=== PATIENT | female | born 2000 | race Hispanic/Latino ===

== ENCOUNTER 2023-07-03 09:27 | Emergency (ER) | payer OTHER, SELFPAY ==
[2023-07-03 09:52] VITALS: BP 129/68; PULSE 94; RESP 16; TEMP 37.3; O2SAT 99
--- NOTE | 2023-07-03 10:01 | ED.URI ---
HPI - URI/Sore Throat General Chief Complaint: Upper Respiratory Infection Stated Complaint: Sore throat Time Seen by Provider: 07/03/23 10:02 Source: patient Mode of arrival: ambulatory Limitations: no limitations History of Present Illness HPI Narrative: 22 yo F presents with c/o sore throat, chills and bodyaches for 2 days. Afebrile. hx of strep multiple times. pt also states she is . found out a few wks ago. LMP end of apr. Has not made [employer] appt yet. No pregnacy related complications today. all systems reviewed and negative except as noted above. Related Data Allergies Allergy/AdvReac Type Severity Reaction Status Date / Time No Known Allergies Allergy Verified 07/03/23 10:10 Review of Systems Review of Systems: CONSTITUTIONAL: Denies fever. reports chills. Denies sweats. EYES: Denies visual changes, redness, or discharge. ENT: Denies rhinorrhea, congestion . Reports sore throat. denies otalgia. CARDIOVASCULAR: Denies chest pain, palpitations, or edema. RESPIRATORY: Denies cough or dyspnea. GASTROINTESTINAL: Denies abdominal pain, nausea, vomiting, or diarrhea. GENITOURINARY: Denies dysuria or hematuria. SKIN: Denies rash or itching. MUSCULOSKELETAL: Denies back pain, joint pain. Reports myalgia. NEUROLOGIC: Denies headache, numbness, or weakness. PSYCHIATRIC: Denies anxiety or depression. All other systems reviewed are negative, except as documented in HPI. PMFSH Comments At time of signature, agree with nursing past medical, surgical, social and family history. There is no relevant family history pertinent to the presenting complaint. Exam Narrative: GENERAL: This is a well-nourished, well-developed patient, in no apparent distress. HEAD: normocephalic, atraumatic. EYES: PERRL. Sclera clear/white. Vision is grossly intact. EARS: External ears normal, auditory canals clear and without drainage, TMs normal without perforation. Hearing grossly intact. NOSE: External nose normal with no obvious nasal discharge, nares without redness, no rhinorrhea. THROAT: Mucous membranes moist, mild erythema to posterior pharynx without swelling or exudates. NECK: Neck supple, non-tender without lymphadenopathy, masses or thyromegaly. CARDIOVASCULAR: Regular rate and rhythm without murmurs, gallops, or rubs. RESPIRATORY: Clear to auscultation. Breath sounds equal bilaterally. No wheezes, rales, or rhonchi. SKIN: warm, Dry, intact with no suspicious lesions or rash, good texture and turgor. NEURO: awake, alert, and oriented to person, place and time. There were no obvious focal neurologic abnormalities. EXTREMITIES: No joint tenderness, effusion, or edema noted. Course Course Level of Care: Express Care Visit Vital Signs Vital signs: Vital Signs Temperature 37.3 C 07/03/23 09:52 Pulse Rate 94 07/03/23 09:52 Respiratory Rate 16 07/03/23 09:52 Blood Pressure 129/68 07/03/23 09:52 Pulse Oximetry 99 07/03/23 09:52 Oxygen Delivery Room Air 07/03/23 09:52 Temperature 37.3 C 07/03/23 09:52 Pulse Rate 94 07/03/23 09:52 Respiratory Rate 16 07/03/23 09:52 Blood Pressure 129/68 07/03/23 09:52 Pulse Oximetry 99 07/03/23 09:52 Oxygen Delivery Room Air 07/03/23 09:52 Reviewed MDM - URI/Sore Throat MDM Narrative Medical decision making narrative: negative rapid strep will wait for strep culture prior to treating with antibiotics. Patient agrees with plan of care. Patient given [facility] booklet with several OBGYN names and numbers. Patient is aware of diagnosis, understands and agrees to treatment plan. Anticipatory guidance given. Patient agrees to follow-up as directed and is aware of reasons to seek care at the emergency department. Portions of this record may have been created with voice recognition software Differential Diagnosis Differential diagnosis: Likely viral infection and pharyngitis Lab Data Labs: Strep Screen
== END 2023-07-03 10:24 | disposition home or self-care (01) ==
PROVIDERS: Emergency Provider Nurse Practitioner Family
DX: O99.519 Diseases of the respiratory system complicating pregnancy, unspecified trimester (principal); Z3A.00 Weeks of gestation of pregnancy not specified; J02.9 Acute pharyngitis, unspecified
CPT/HCPCS: 87081; 87880; 99213; G0463

== ENCOUNTER 2024-01-29 04:02 | Inpatient (IN) | payer OTHER, SELFPAY ==
[2024-01-29] VITALS (192 sets, daily range): BP systolic 87–193; BP diastolic 49–153; PULSE 56–121; TEMP 36.1–36.7; O2SAT 89–100; BMI 37.8
[2024-01-29 04:48] LABS: Basophils Percent Auto 0.5 % (0.2-1.2); Eosinophils Absolute Auto 0.2 K/mm3 (0-0.3); Eosinophils Percent Auto 1.9 % (0-4.4); Hematocrit 37.8 % (37.0-47.0); Hemoglobin 12.5 g/dL (12.0-15.0); Immature Granulocyte Absolute 0.04 K/mm3 (0.00-0.031); Immature Granulocyte Percent A 0.5 % (0-0.5); Lymphocytes Absolute Auto 2.97 K/mm3 (0.9-3.2); Lymphocytes Percent Auto 37.7 % (18.3-44.2); Mean Corpuscular HGB Conc 33.1 g/dl (32-36); Mean Corpuscular Hemoglobin 27.6 pg (26-34); Mean Corpuscular Volume 83.4 fl (80-100); Mean Platelet Volume 12.6 fl (7.4-10.4); Monocytes Absolute Auto 0.6 K/mm3 (0.1-0.6); Monocytes Percent Auto 7.5 % (2.6-8.5); Neutrophils Absolute Auto 4.1 K/mm3 (1.3-6.7); Neutrophils Percent Auto 51.9 % (45.5-73.1); Platelet Count Result 143 k/mm3 (150-375); Red Blood Count 4.53 M/mm3 (4.2-5.4); White Blood Count 7.9 K/mm3 (4.5-10.0)
[2024-01-29] MEDS: LACTATED RINGERS 1,000 ML 125 ML IV CONT ×2 (04:53→15:47)
[2024-01-29] MEDS: AMPICILLIN 2 GM/NS 100 ML 2 GM/100 ML BAG IVPB (04:53)
--- NOTE | 2024-01-29 04:57 | LDADM ---
This patient, Shayy Evans, was admitted to Labor/Delivery/Recovery 106 on 01/29/24 at 04:02. Plans for labor, pain management and were discussed with patient. Patient/family oriented to hospital policies and general routines including ID bracelet, bed and alarms, visiting hours, pain management, procedures, bathroom and other care routines, personal items, smoking policy, room service/diet and guest tray routines, security routines, and visiting hours. Patient/Family are encouraged to report perceived risks to care and to ask questions if they do not understand what they are told or what they should do. See [facility]BI[facility] for further documentation.
[2024-01-29 05:37] LABS: HIV 1/2 Ab P24 Ag Result Negative (Negative)
[2024-01-29] MEDS: OXYTOCIN 30 UNITS/NS 500 ML 30 UNITS/500 ML BAG 6 UNITS IV CONT (06:51)
--- NOTE | 2024-01-29 08:23 | P.HPUP_ITS ---
History and Physical Update Update Date/Time: 01/29/24 08:23 23-year-old 1 at term who presented with spontaneous rupture membranes. No contractions yet. Comfortable. Receiving antibiotics for group B strep status. Expectant management. Adding Pitocin. History and Physical has been reviewed, including an updated exam of the patient. There are NO changes in the patient's condition. Risks, benefits, and alternatives have been discussed and questions answered. P atient agrees to proceed with procedure.
[2024-01-29] MEDS: AMPICILLIN 1 GM/NS 50 ML 1 GM/50 ML BAG IVPB ×3 (09:06→17:02)
--- NOTE | 2024-01-29 10:00 | P.PNAN_ITS ---
Anes - Eval Pre Procedure Procedure: labor epidural Date/Time: 01/29/24 10:00 Preop Diagnosis: labor pain Pre Op Diagnosis: SROM Patient Data Age: 23 Gender: F Height: 1.52 m Weight: 88 kg Last Vital Signs Temp 36.1 C L 01/29/24 08:00 Pulse 89 01/29/24 09:30 BP 123/72 01/29/24 09:30 Allergies Allergy/AdvReac Type Severity Reaction Status Date / Time No Known Allergies Allergy Verified 07/03/23 10:10 Home Medications Medication Instructions Recorded Confirmed Type prenat.vits,venancio,dli-iewx-ehydw 1 tablet 01/13/24 History Laboratory Tests 01/29/24 04:38 WBC 7.9 K/mm3 (4.5-10.0) RBC 4.53 M/mm3 (4.2-5.4) Hgb 12.5 g/dL (12.0-15.0) Hct 37.8 % (37.0-47.0) MCV 83.4 fl (80-100) MCH 27.6 pg (26-34) MCHC 33.1 g/dl (32-36) RDW 16.0 H % (11.5-14.5) Plt Count 143 L k/mm3 (150-375) MPV 12.6 H fl (7.4-10.4) Immature Gran % (Auto) 0.5 % (0-0.5) Neut % (Auto) 51.9 % (45.5-73.1) Lymph % (Auto) 37.7 % (18.3-44.2) [place] % (Auto) 7.5 % (2.6-8.5) Eos % (Auto) 1.9 % (0-4.4) Baso % (Auto) 0.5 % (0.2-1.2) Lymph # (Auto) 2.97 K/mm3 (0.9-3.2) [place] # (Auto) 0.6 K/mm3 (0.1-0.6) Eos # (Auto) 0.2 K/mm3 (0-0.3) Baso # (Auto) 0.0 K/mm3 (0.0-0.1) Abs Immat Gran (auto) 0.04 H K/mm3 (0.00-0.031) Absolute Neuts (auto) 4.1 K/mm3 (1.3-6.7) Absolute Nucleated RBC 0.000 K/mm3 (0.0-0.012) Nucleated RBC % 0.0 % (0.0-0.2) RPR Pending HIV 1&2 Ab/P24 Ag 4thGn Negative (Negative) Blood Type O Positive Antibody Screen Negative Patient hx anesthesia problems: none Family hx anesthesia problems: none Results Review: All pre-operative results and documents have been reviewed as part of the pre- operative evaluation. [facility] Family History Family History Grandparent Diabetes mellitus Social History Social History Smoking status: Never smoker Second hand tobacco smoke exposure: No Substance use: never Do You Feel Safe in your Home?: Yes Lack of Transportation: No Lack of Food: Never True Current Housing: I Have Housing Concerned About Future Housing: No Difficulty Paying Gas/Electric Bills: No Difficulty Paying for Meds: No Currently Unemployed: YES Education: High School Diploma/GED Difficulty w/ Childcare or Family Care: No Spiritual care concerns: No Exam Day of Procedure 01/29/24 10:00 Patient weight: normal Heart: regular rate and rhythm Lungs: clear to auscultation and normal air movement Airway: Mallampati scale class II Neurological: alert and oriented
[2024-01-29] MEDS: fentaNYL CITRATE INJ (*CRX) 100 MCG/2 ML VIAL 50 MCG IV PUSH (10:42)
[2024-01-29] MEDS: LACTATED RINGERS 1,000 ML 999 ML IV CONT (11:09)
[2024-01-29] MEDS: miSOPROStol 200 MCG TABLET 1000 MCG (20:44)
--- NOTE | 2024-01-29 20:52 | P.PCNOB_ITS ---
OB - Vaginal Delivery Note Procedure Delivery date: 01/29/24 Events: Positive Group B Strep (GBS) Delivery augmentation: Pitocin Delivery monitor: External FHT and Internal Uterine Route of delivery: Episiotomy description: None Laceration Description: Perineal - 1st Degree and Vaginal Delivery repair: vicryl Specimen: No Quantitative Blood Loss (ml): 300 Anesthesia type: Epidural Disposition: Floor Narrative: head delivered ELHMA, anterior shoulder easily delivered under pubic bone, posterior hand trying to deliver with fetus, unable to reposition, slow delivery of the rest of the body. baby to warmer, mother and baby both in stable condition [place] Baby Date of : 01/29/24 Time of : 20:34 Weeks of gestation at delivery: 38 Infant gender: Female Weight (pounds): 6 Weight (ounces): 8 presentation: vertex position: Left Occiput Anterior Placenta delivery description: Spontaneous Cord Vessel Description: 3 Vessels and Clamped/Cut score one minute: 8 score five minutes: 9
[2024-01-29] MEDS: OXYTOCIN 30 UNITS/NS 500 ML 30 UNITS/500 ML BAG 125 UNITS IV CONT (20:55)
[2024-01-29] MEDS: WITCH HAZEL 40 PADS 1 PAD TOPICAL (22:53)
[2024-01-29] MEDS: BENZOCAINE 20% AER SPR (*SP) 56 GM CAN 1 SPRAY TOPICAL (22:53)
--- NOTE | 2024-01-29 23:27 | OBPPTRN ---
Patient transferred to post room # 291 via ( wheelchair ). Support person present. Oriented to unit, room, information board, rooming in, admission packet and security measures. Patient verbalizes understanding.
[2024-01-30] VITALS: BP 121/77; PULSE 104; RESP 18; TEMP 36.9; O2SAT 99
[2024-01-30] MEDS: IBUPROFEN 600 MG TABLET PO ×3 (01:38→19:00)
[2024-01-30 04:00] VITALS: BP 110/62; PULSE 94; RESP 18; TEMP 36.4; O2SAT 100
[2024-01-30 04:40] LABS: Hematocrit 31.2 % (37.0-47.0); Hemoglobin 10.2 g/dL (12.0-15.0)
[2024-01-30 07:00] VITALS: BP 104/64; PULSE 95; RESP 16; TEMP 36.7; O2SAT 100
[2024-01-30 08:00] VITALS: PULSE 95; RESP 16; O2SAT 100
[2024-01-30] MEDS: DOCUSATE SODIUM 100 MG CAPSULE PO (08:44)
[2024-01-30] MEDS: MULTIVIT/MIN/PREN/FOL AC/IRON TABLET 1 TAB PO ×2 (08:44)
--- NOTE | 2024-01-30 11:40 | PM.OBPNVD ---
OB - PN: Subj Subjective Date/time seen: 01/30/24 11:40 Patient comments: no complaints, pain well controlled, incisional pain, tolerating diet and flatus present OB - PN: Obj Data Labs 01/30/24 04:14 Labs: Laboratory Results - last 24 hr 01/30/24 04:14 Hgb 10.2 L Hct 31.2 L OB - PN A/P Plan day: 1 Plan: routine care Comments: No problems, routine care Time Spent With Patient Time: Total time spent is greater than 50% in coordination of care (as documented) at patient's floor/unit and/or counseling patient: Exam Const: General: comfortable, no acute distress and alert Resp: Effort & Inspection: normal respiratory effort Auscultation: no crackles, no rales and no rhonchi Cardio: Rate: regular rate Heart sounds: no click, no murmurs and no rubs GI: Inspection: non-distended GI Palp: No Tenderness to palpation present (GI) Auscultation: normal bowel sounds Other: Incision - CDI Extrem: General: normal to inspection, no pedal edema and no calf tenderness
--- NOTE | 2024-01-30 16:13 | WPDANLDPN2 ---
Anes-Prog Note L&D Date/Time: 01/30/24 16:13 Comfortable throughout: labor and delivery Neuraxial method: epidural Epidural/Spinal procedure site: clean & non-tender Neuro status: Neuro function grossly intact. Cardiovascular status: normal Respiratory status: normal Airway patency: baseline Mental status: baseline Post-Op hydration status: normal Vital Signs: Last Vital Signs Temp 36.7 C 01/30/24 07:00 Pulse 95 01/30/24 08:00 Resp 16 01/30/24 08:00 BP 104/64 01/30/24 07:00 Pulse Ox 100 01/30/24 08:00 O2 Del Method Room Air 01/30/24 08:00 Pain score (VAS): 3 Post-procedural complaints: none Patient feedback: Patient satisfied with anesthetic care.
[2024-01-30 19:31] VITALS: BP 133/87; PULSE 115; RESP 20; TEMP 36.8; O2SAT 100
[2024-01-31 07:38] VITALS: BP 125/85; PULSE 93; RESP 16; TEMP 37; O2SAT 100
--- NOTE | 2024-01-31 08:13 | PM.OBPNVD ---
OB - PN: Subj Subjective Date/time seen: 01/31/24 08:13 Patient comments: no complaints, pain well controlled and tolerating diet OB - PN: Obj Data Labs 01/30/24 04:14 OB - PN A/P Plan day: 2 Plan: routine care and discharge home Time Spent With Patient Time: Total time spent is greater than 50% in coordination of care (as documented) at patient's floor/unit and/or counseling patient: Exam Const: General: comfortable and no acute distress Resp: Effort & Inspection: normal respiratory effort Auscultation: no rales, no rhonchi and no wheezes Cardio: Rate: regular rate Heart sounds: no click, no murmurs and no rubs GI: GI Palp: Yes Soft to palpation and No Tenderness to palpation present (GI) Auscultation: normal bowel sounds Extrem: General: normal to inspection, no pedal edema and no calf tenderness
--- NOTE | 2024-01-31 08:14 | PM.OBDSVD ---
DS: Admitting Diagnosis Discharge Date January 31, 2024 Admitting Diagnosis term , labor DS: Discharge Diagnosis Discharge Diagnosis (1) Post term , delivered: Code(s): O48.0 - Post-term Status: Acute OB - DS: Summary OB Procedures : None OB Procedures Intrapartum: Spontaneous Vag Delivery OB Procedures: : None Peripartum Data Laceration Description: Perineal - 1st Degree and Vaginal Episiotomy description: None Time Spent with Patient Time attestation: Total time spent providing and/or coordinating discharge services: Discharge Plan Discharge Discharging Clinician: Con Ackerman Patient Disposition: Home, Self-Care Activity: pelvic rest Diet: regular Patient Instructions: Antibiotic Form Stand Alone Forms: General Discharge Information Follow-up/Referrals: Con Ackerman MD [Physician] - Discharge Medications: Continued #2 Tablet 1 tablet Date of admission: 01/29/24 04:02 Primary Care Provider: PHYSICIAN NOT ON STAFF,NONSTAFF Admitting Provider: Celio Go Attending physician on admission: Celio Go Condition: Stable
[2024-01-31] MEDS: MULTIVIT/MIN/PREN/FOL AC/IRON TABLET 1 TAB PO (09:13)
[2024-01-31] MEDS: IBUPROFEN 600 MG TABLET PO (09:14)
[2024-01-31 09:15] VITALS: PULSE 93; RESP 16; O2SAT 100
[2024-01-31] MEDS: DOCUSATE SODIUM 100 MG CAPSULE PO (09:15)
[2024-01-31 14:00] LABS: Rapid Plasma Reagin Non-Reactive (NonReactive)
--- NOTE | 2024-01-31 19:00 | PC.NURSE ---
1200 Patient viewed the discharge video Mother & Baby Care, The First Two Weeks . Patient was given the opportunity and encouraged to ask questions. Patient verbalized understanding of information shared and has been given the mother/baby guide for home reference.
[2024-02-01 11:36] VITALS: BP 134/81; PULSE 72; RESP 18; TEMP 36.8; O2SAT 100
== END 2024-01-31 13:03 | disposition home or self-care (01) | DRG 560 ==
LOC: ANHOB2 01-31 10:49 → ANHLDR 02-01 10:55
PROVIDERS: Advanced Practice Midwife; Admitting Provider Obstetrics & Gynecology; Visit Provider Obstetrics & Gynecology
DX: O99.824 Streptococcus B carrier state complicating childbirth (principal); Z37.0 Single live birth; Z3A.38 38 weeks gestation of pregnancy; O32.6XX0 Maternal care for compound presentation, not applicable or unspecified; O70.0 First degree perineal laceration during delivery
CPT/HCPCS: 36415; 84112; 85014; 85018; 85025; 86592; 86703; 86850; 86900; 86901; A9270; G0432; J0290; J2590; J2795; J3010; J7120